=== PATIENT | male | born 1965 ===

== ENCOUNTER 2022-03-22 20:28 | Emergency (ER) | payer SELFPAY ==
[2022-03-22 20:35] VITALS: BP 172/112
--- NOTE | 2022-03-23 22:39 | Electrocardiograph Report ---
[facility] Test Date: 2022-03-22 Test Time: 20:27:32 Pat Name: JASSON DANG Department: Room: Gender: M Cashier Courtesy Booth: EDWIN : 1965 Requested By: MODESTA MILLER Order Number: [id number] Reading MD: Stanislav Samuels Measurements Intervals [place] Rate: 74 P: 60 KS: 155 QRS: 54 QRSD: 91 T: 30 QT: 395 QTc: 437 Interpretive Statements Sinus rhythm Atrial premature complexes No previous ECG available for comparison Electronically Signed On 03-23-2022 22:39:22 EDT by Stanislav Samuels
== END 2022-03-23 03:00 | disposition left against medical advice (07) ==
LOC: ED 20:28
DX: R07.9 Chest pain, unspecified (principal); Z53.21 Procedure and treatment not carried out due to patient leaving prior to being seen by health care provider
CPT/HCPCS: 93005